=== PATIENT | male | born 1955 | race Caucasian/White ===

== ENCOUNTER 2019-04-19 08:32 | Emergency (ER) | payer OTHER ==
[2019-04-19 08:38] VITALS: BP 136/96
--- NOTE | 2019-04-19 08:56 | UC ---
Skin Complaint HPI - HPI Summary HPI Summary: Pt is 63 y/o male with pruritic red rash to bilateral hands and right forearm after gardening and weeding 4 days ago. He has tried OTC topicals without relief of sx. States he has had poison deepika before and his current sx feel similar. Denies fevers, chills, nausea. No other complaints at this time. - History of Current Complaint Chief Complaint: Ras Time Seen by Provider: 04/19/19 08:48 Stated Complaint: RASH Hx Obtained From: Patient Onset/Duration: Sudden Onset Skin Exposure Onset/Duration: Days Ago Timing: Constant Onset Severity: Mild Current Severity: Mild Pain Intensity: 0 Pain Scale Used: 0-10 Numeric Location: Hand (Right), Hand (Left) Character: Pruritus, Redness Aggravating Factor(s): Nothing Alleviating Factor(s): Nothing Associated Signs & Symptoms: Negative: Nausea, Vomiting, Fever, Chills Related History: Possible Reaction to: Environmental Exposure - Poison deepika Similar Episode/Dx as: Poison deepika dermatitis - Allergy/Home Medications Allergies/Adverse Reactions: Allergies Allergy/AdvReac Type Severity Reaction Status Date / Time No Known Allergies Allergy Verified 04/19/19 08:39 PMH/Surg Hx/FS Hx/Imm Hx Previously Healthy: No Endocrine History: Hyperthyroidism Other History Of: Negative For: HIV, Hepatitis B, Hepatitis C, Anticoagulant Therapy - Surgical History Surgical History: None - Family History Known Family History: Positive: Hypertension, Diabetes - grandfather - Social History Alcohol Use: Occasionally Substance Use Type: None Smoking Status (MU): Never Smoked Tobacco Review of Systems All Other Systems Reviewed And Are Negative: Yes Constitutional: Negative: Fever, Chills Skin: Positive: Rash - Pruritic bilateral hands Gastrointestinal: Negative: Vomiting, Nausea Physical Exam Triage Information Reviewed: Yes Appearance: Well-Appearing, No Pain Distress Vital Signs: Initial Vital Signs Temp 98 F 04/19/19 08:36 Pulse 72 04/19/19 08:36 Resp 16 04/19/19 08:36 BP 136/96 04/19/19 08:36 Pulse Ox 100 04/19/19 08:36 Vital Signs Reviewed: Yes Eyes: Positive: Conjunctiva Clear ENT: Positive: Normal ENT inspection Neck: Positive: Supple, Nontender Respiratory: Positive: Lungs clear Cardiovascular: Positive: RRR Abdomen Description: Negative: Distended Musculoskeletal: Positive: Strength Intact, ROM Intact Neurological: Positive: Alert Psychological: Positive: Normal Response To Family Skin: Positive: Rashes - Minimally erythematous, pruritic rash to bilateral dorsal hands. Small blisters noted to left third digit. No drainage, streaking, warmth. Course/Dx - Course Course Of Treatment: 63 y/o male with known exposure to poison deepika. Given dose of prednisone here. Discharged with instructions to apply OTC topical 1% hydrocortisone to affected areas. To f/u with PCP. Patient seen in collaboration with the physician plant attendant or assistant operator student. - Differential Diagnoses - Skin Complaint Differential Diagnoses: Poison Deepika - Diagnoses Provider Diagnosis: Poison deepika dermatitis Discharge - Sign-Out/Discharge Documenting (check all that apply): Patient Departure All imaging exams completed and their final reports reviewed: No Studies - Discharge Plan Condition: Improved Disposition: HOME Prescriptions: predniSONE TAB* [Deltasone 20 MG TAB*] 20 mg PO DAILY #7 tab Patient Education Materials: Poison Deepika (ED) Referrals: Bebeto Edwards MD [Primary Care Provider] - Additional Instructions: Use topical hydrocortisone 1% ointment to areas of poison deepika. Do not use on the face. Also use topical anti-poison deepika soap such as Zenfel or TecNu. Calamine lotion can be used for itching. Return if worse, new symptoms or other concerns. - Billing Disposition and Condition Condition: IMPROVED Disposition: Home - Attestation Statements Document Initiated by Neeru: Yes Documenting Scribe: DELORIS Alonzo Provider For Whom Scribe is Documenting (Include Credential): Dr. Gonzalez Scribe Attestation: Mojgan Polo PA-S, scribed for Dr. Gonzalez on 04/19/19 at 1042. Scribe Documentation Reviewed: Yes Provider Attestation: The documentation as recorded by the Mojgan valenzuela PA-S accurately reflects the service I personally performed and the decisions made by Dr. Carlos wheatley Status of Scribe Document: Viewed
== END 2019-04-19 08:55 | disposition home or self-care (01) ==
LOC: UCEAST 08:32
DX: L23.7 Allergic contact dermatitis due to plants, except food (principal)
CPT/HCPCS: 99212; G0463